=== PATIENT | male | born 1960 ===

== ENCOUNTER 2017-03-20 21:05 | Emergency (ER) | payer OTHER ==
[2017-03-20 21:05] VITALS: BMI 25.7
[2017-03-20 21:17] VITALS: TEMP 97.8
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
[2017-03-20 23:51] VITALS: BP 138/82; PULSE 74; RESP 18; O2SAT 95
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
== END 2017-03-21 00:11 | disposition home or self-care (01) ==
LOC: H.ER 21:05
DX: S89.91XA Unspecified injury of right lower leg, initial encounter (principal); V09.9XXA Pedestrian injured in unspecified transport accident, initial encounter; Y92.410 Unspecified street and highway as the place of occurrence of the external cause